=== PATIENT | female | born 1995 | race African-American/Black ===

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

== ENCOUNTER 2017-04-26 09:48 | Emergency (ER) | payer SELFPAY ==
[~2017-04-26] VITALS: Ht 152.4 cm; Wt 50.0 kg
[~2017-04-26 09:48] MED LIST changes: +IBUP-232 PO; -IBUP800T23 PO; -LORTS PO; -OSEL75 PO; -PENI500T PO; -Z.0.NO CURRENT MEDS; -[UNRECOGNIZED DRUG - CODE] DENTAL
[2017-04-26 09:50] VITALS: BP 120/66; PULSE 123; RESP 14; TEMP 98.8; O2SAT 99
[2017-04-26] MEDS ORDERED: DEPO150I IM (10:01)
--- NOTE | 2017-04-26 10:53 | PD ---
HPI Chief Complaint: Abdominal Pain Time Seen by Provider: 09:53 Travel History International Travel<30 days: No Contact w/Intl Traveler<30days: No Traveled to known affect area: No History of Present Illness HPI Is a 21-year-old young woman presents to the emergency department of lower abdominal pain for the past 1-2 weeks. She also endorses vaginal discharge, as well as some urinary discomfort and a strong odor to the urine. She had an elective back in December. That is her only previous . Last menstrual period was in February. She is on Depo-Provera and she has had SCDs in the past. She sexually active with men and women, 3 partners in the past 6 months. Appetites been normal. No change in her bowel movements. No other GI symptoms. History Past Medical History Medical History: Denies Significant Hx LMP: 02/23 Social History Alcohol Use: No Tobacco Use: No Allergies-Medications (Allergen,Severity, Reaction): Coded Allergies: No Known Allergies (Verified , 09/22/16) Reported Meds & Prescriptions Reported Meds & Active Scripts Active Reported Depo-Provera Inj (Medroxyprogesterone Inj) 150 Mg/Ml Inj 150 Mg IM Q90D Review of Systems Except as stated in HPI: all other systems reviewed are Neg Physical Exam Narrative GENERAL: Well-appearing 21-year-old young woman, no acute distress. SKIN: Focused skin assessment warm/dry. HEAD: Atraumatic. Normocephalic. CARDIOVASCULAR: Warm and well-perfused. RESPIRATORY: Normal rate and effort. GASTROINTESTINAL: Abdomen soft, non-tender, nondistended. Hepatic and splenic margins not palpable. MUSCULOSKELETAL: No obvious deformities. THREAD SINGER: Normal external female genitalia. Mild amount of vaginal discharge in the vaginal vault. No cervical lesions or rashes. Minimal cervical motion tenderness. Minimal adnexal tenderness. No palpable uterine enlargement or adnexal masses. Data Data Last Documented VS Vital Signs Date Time Temp Pulse Resp B/P (MAP) Pulse Ox O2 Delivery O2 Flow Rate FiO2 04/26/17 09:50 98.8 123 14 120/66 (84) 99 Orders Orders Urinalysis - C+S If Indicated (04/26/17 09:55) Ed Urine Pregnancytest Poc (04/26/17 09:55) Gc And Chlamydia Pcr (04/26/17 10:28) Wet Prep Profile (04/26/17 10:28) Azithromycin Powd Pack (Zithromax Powd P (04/26/17 12:00) Ondansetron Odt (Zofran Odt) (04/26/17 12:00) Rocephin 250mg Vial Im X 1 (04/26/17 12:00) Lidocaine 1% Inj (50 Ml) (Xylocaine 1% I (04/26/17 12:00) Metronidazole (Flagyl) (04/26/17 12:00) Labs Laboratory Tests Test 04/26/17 10:15 04/26/17 10:20 Urine Color YELLOW Urine Turbidity HAZY Urine pH 6.5 Urine Specific [place] 1.008 Urine Protein NEG mg/dL Urine Glucose (UA) NEG mg/dL Urine Ketones NEG mg/dL Urine Occult Blood NEG Urine Nitrite NEG Urine Bilirubin NEG Urine Urobilinogen LESS THAN 2.0 MG/DL Urine Leukocyte Esterase SMALL Urine RBC 1 /hpf Urine WBC 2 /hpf Urine Squamous Epithelial Cells 20 /hpf Urine Amorphous Sediment RARE Urine Bacteria FEW /hpf Urine Mucus FEW /lpf Microscopic Urinalysis Comment CULT NOT INDICATED Clue Cells (Wet Prep) PRESENT Vaginal Trichomonas (Wet Prep) NONE SEEN Vaginal Yeast (Wet Prep) NONE SEEN MDM Medical Decision Making Medical Screen Exam Complete: Yes Emergency Medical Condition: Yes Interpretation(s) UA unremarkable. Wet prep, clue cells Differential Diagnosis Urethritis, cervicitis, cystitis, endometriosis, ovarian cyst, other Narrative Course Medical decision making 21-year-old with lower abdominal discomfort vaginal discharge and dysuria suggestive STD. Will check UA, pelvic exam, GC chlamydia. Likely empiric treatment. FINAL: Wet prep with some clue cells. I do not think BV explains the patient's clinical picture. Twice daily much more likely. We will treat for PID. Discussed with patient. Diagnosis Primary Impression: PID (acute pelvic inflammatory disease) Patient Instructions: General Instructions Additional Instructions: Followup with your wetland scientist for routine THREAD SINGER care and followup testing for other sexually transmitted infection such as HIV, hepatitis, syphilis. Any sexual partners you have should be tested and treated as well. You should not have sex until you have no symptoms, and your partners tested and treated as well. Disposition: 01 DISCHARGE HOME Condition: Stable Neville Diaz MD Apr 26, 2017 10:53
[2017-04-26 11:09] LABS: AMORPHOUS SEDIMENT, URINE RARE; BACTERIA, URINE FEW /hpf; BILIRUBIN, URINE NEG (NEG); BLOOD, URINE NEG (NEG); GLUCOSE,URINE NEG (NEG); KETONE, URINE NEG (NEG); MUCUS URINE FEW /lpf (OCC); NITRITE,URINE NEG (NEG); PH, URINE 6.5 (5.0-8.5); SQUAMOUS EPITHELIAL CELL URINE 20 /hpf (0-5); URINE COLOR YELLOW (YELLW/STRAW); URINE LEUKOCYTE ESTERASE SMALL (NEG)
[2017-04-26] MEDS ORDERED: metroNIDAZOLE 500 MG TAB PO ONE (12:00)
[2017-04-26] MEDS ORDERED: AZITHROMYCIN PWD FOR SUSP 1 GM PACKET PO ONE (12:00)
[2017-04-26] MEDS ORDERED: cefTRIAXone 250 MG VIAL IM ONE (12:00)
[2017-04-26] MEDS ORDERED: LIDOCAINE HCL 1% 50 ML VIAL IM ONE (12:00)
[2017-04-26] MEDS ORDERED: ONDANSETRON ODT 4 MG TAB PO ONE (12:00)
[2017-04-26] MEDS ORDERED: LIDOCAINE HCL 1% PF 2 ML VIAL ONE (12:18)
== END 2017-04-26 12:44 | disposition home or self-care (01) ==
LOC: NEPD 09:48
DX: N73.9 Female pelvic inflammatory disease, unspecified (principal)
CPT/HCPCS: 81001; 84703; 87210; 87491; 87591; 96372; 99284; J0696